=== PATIENT | female | born 1980 | race Caucasian/White ===

== ENCOUNTER 2025-04-21 09:26 | Outpatient (AMB) | payer OTHER, SELFPAY ==
--- NOTE | 2025-04-21 09:34 | MHC.PC.OV ---
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 Allergies No Known Allergies Allergy (Verified 04/21/25 09:40) Tobacco use date assessed: 04/21/25 Dental Screening Dental Screen Date: 04/21/25 Did you have a dental visit in the last 12 months?: Yes Did you have a dental problem in the last 6 months where you did not have access to dental care?: No Was dental information given to patient?: Patient has dentist HPI HPI Comments History of Present Illness Details This is a 45-year-old female with no significant past medical history presenting to establish care. She transferred from [facility]. She has annual dermatology exams. Colonoscopy age 38 years due to stomach issues. She thinks this was actually due to taking antibiotics around that time. She is doing fine. She would like to have Cologuard done. She has no family history of colon cancer history of polyps. Gynecology Dr. Villalobos. Mammogram up to date. Father had renal cancer removed in 2014. Patient denies hematuria. She is a nonsmoker. Urinalysis ordered. Eye and dental exams are up to date. She reports having a tetanus vaccine in 2020. She declines flu vaccine. 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 She is going to start exercising again and work on her diet. ROS: Constitutional: No unexplained weight loss, fever, chills, fatigue or night sweats. Eyes: No vision changes, blurry vision, double vision, eye pain, eye redness, eye discharge. ENT: No hearing loss, sneezing, congestion, runny nose or sore throat. Respiratory: No shortness of breath, cough or sputum production. Cardiovascular: No chest pain, chest pressure or chest discomfort. No palpitations or pedal edema. Gastrointestinal: No anorexia, nausea, vomiting or diarrhea. No abdominal pain or blood in stool. Genitourinary: No dysuria, hematuria, urinary frequency. Neurologic: No headache, dizziness, syncope, unilateral weakness, ataxia, numbness or tingling in the extremities. Musculoskeletal: No muscle pain, back pain, joint pain or swelling. Hematologic/Lymphatics: No bleeding or bruising. No painful lymph nodes. Skin: No rash Endocrine: No cold or heat intolerance. No polyuria or polydipsia. Psychiatric: No depression or anxiety. No SI/HI. Physical exam: Constitutional: Alert, in no distress. Head: Normocephalic. Eyes: Pupils are equal, round and reactive to light. Extraocular muscles intact. Ear, Nose and Throat: Canals clear. TMs normal. Normal nasal mucosa. No nasal discharge. No oral lesions. Neck: Supple, Full range of motion. No lymphadenopathy. No palpable thyroid masses. Respiratory: Clear to auscultation. Cardiovascular: S1 S2 regular. No murmurs. No carotid bruits. Gastrointestinal: Abdomen soft, non-tender, non-distended. Normal bowel sounds. No palpable masses. Neurologic: No focal neurological deficits. Symmetric patellar reflexes. Moves all extremities spontaneously Skin: No rashes Musculoskeletal: No gross deformities. Normal range of motion. Extremities: Warm and well perfused. No clubbing, cyanosis or edema. Intact peripheral pulses bilaterally. Psychiatric: Normal mood and affect [facility] Medical History (Updated 04/21/25 @ 10:00 by ABIGAIL Grove) Routine physical examination Screening for cardiovascular condition H/O mammogram delivery delivered Surgical History (Updated 04/21/25 @ 09:51 by Jolie Jamison CMA) H/O colonoscopy History of salpingectomy History of dilation and curettage Family History (Updated 04/21/25 @ 09:43 by Jolie Jamison CMA) Father FH: kidney cancer Social History (Updated 04/21/25 @ 09:44 by Jolie Jamison CMA) Housing: House Alcohol intake: never Patient Tobacco Use Status: Former Tobacco user Cigarette Packs Per Day: 1 Cigarettes Per Day: 7 Years Smoked: 5 e-Cigarette/Vaping Use: Never Used Second Hand Smoke Exposure: No service: No Current occupational status: unemployed Current occupational exposures/hazards: No Cognitive needs: No Hearing needs: No Vision needs: No Questionnaire PHQ-9 Over the last 2 weeks, how often have you been bothered by any of the following problems? 1. Little interest or pleasure in doing things: not at all 2. Feeling down, depressed, or hopeless: not at all 3. Trouble falling or staying asleep, or sleeping too much: not at all 4. Feeling tired or having little energy: not at all 5. Poor appetite or overeating: not at all 6. Feeling bad about yourself - or that you are a failure or have let yourself or your family down: not at all 7. Trouble concentrating on things, such as reading the newspaper or watching television: not at all 8. Moving or speaking so slowly that other people could have noticed. Or the opposite - being so fidgety or restless that you have been moving around a lot more than usual: not at all 9. Thoughts that you would be better off or of hurting yourself in some way: not at all Total score: 0 Depression Screening Interpretation: Negative Depression Screening Done: Yes 76753 - PHQ-9 Billing: Yes Source: Developed by Drs. Patel Moseley, Susana Javier, Jose Abernathy and colleagues, with an educational raghu from [employer]. Thrive Questionnaire Date Thrive assessed: 04/21/25 I am a: Patient What is your living situation today?: I have a steady place to live Within the past 12 months, did the food you bought not last and you didn't have the money to get more?: Never true Within the past 12 months, did you worry whether your food would run out before you got money to buy more?: Never true Do you have trouble paying for medicines?: No Do you have trouble getting transportation to medical appointments?: No Do you have trouble paying your heating and electricity bill?: No Do you have trouble taking care of your child, family member or friend?: No Do you have trouble with day-to-day activities such as bathing, preparing meals, shopping, managing finances, etc.?: No Are you currently unemployed and looking for a job?: No Are you interested in more education?: No Please select the resources that you would like help with: None Currently or been in a relationship where the following occur: No concerns reported THRIVE Score: 0 AUDIT C Alcohol Use Questionnaire (AUDIT-C) 1. How often do you have a drink containing alcohol?: Never 3. How often do you have six or more drinks on one occasion?: Never Total Score: 0 POLI-7 AMB Questionnaire POLI-7 Date POLI - 7 assessed: 04/21/25 Feeling nervous, anxious, or on edge: 0 = Not at all Not being able to stop or control worryin = Not at all Worrying too much about different things: 0 = Not at all Trouble relaxin = Not at all Being so restless that it is hard to sit still: 0 = Not at all Becoming easily annoyed or irritable: 0 = Not at all Feeling afraid as if something awful might happen: 0 = Not at all Total POLI-7 score (0-4 normal; 5-9 mild; 10-14 moderate; 15-21 severe): 0 Source: Developed by Drs. Patel Moseley, Susana Javier, Jose Abernathy and colleagues, with an educational raghu from [employer]. POLI-7 Assessment Billing POLI-7 Assessment Tool: POLI-7 Assessment 45505 Physical exam (Primary Care) Vital Signs: Last Vital Signs Temp 98.2 F 04/21/25 09:44 Pulse 93 04/21/25 09:44 Resp 16 04/21/25 09:44 BP 110/78 04/21/25 09:44 Pulse Ox 98 04/21/25 09:44 Oxygen Delivery Method Room Air 04/21/25 09:44 BMI result Body Mass Index 29.1 Tobacco/Smoking Status: Tobacco use Status Tobacco use date assessed 04/21/25 04/21/25 09:52 Patient Tobacco Use Status Former Tobacco user 04/21/25 09:52 e-Cigarette/Vaping Use Never Used 04/21/25 09:52 PHQ-9: PHQ-9 Score PHQ-9: Total score 0 04/21/25 09:36 Depression Screening Interpretation: Negative Thrive Assessment: Date of Thrive Assessment Date Thrive assessed 04/21/25 04/21/25 09:36 Currently or been in a relationship where the following occur: No concerns reported Coding Level of Care Code New Pt Prev Care 40-64y(00833) Diagnoses Routine physical examination Z00.00 Screening for cardiovascular condition Z13.6 Additional Codes POLI-7 Assessment Billing - POLI-7 Assessment Tool: POLI-7 Assessment 54245 ([id number]) PHQ-9 - 44740 - PHQ-9 Billing: Yes ([id number]) Assessment & Plan Assessment & Plan (1) Routine physical examination: Code(s): Z00.00 - Encounter for general adult medical examination without abnormal findings Category: Medical (2) Screening for cardiovascular condition: Code(s): Z13.6 - Encounter for screening for cardiovascular disorders Category: Medical Plan Patient is seen today for a routine physical. As part of this visit we reviewed the following issues, which are considered and essential part of preventative health in this age group: - Breast Cancer screening - Annual Wildlife Enforcement Major exam - Screening for colon cancer - Blood pressure screening - Cholesterol screening - Counseling of injury prevention including fire prevention, smoke alarms and seat belt usage - Screening for depression - Education about skin cancer - Recommendations about immunizations - Recommendation of an eye exam - Screening for substance abuse Orders: Orders Comprehensive Met. Panel Today Z00.00 - Encounter for general adult medical examination without abnormal findings, Z13.6 - Encounter for screening for cardiovascular disorders Complete Blood Count no Diff Today Z00.00 - Encounter for general adult medical examination without abnormal findings, Z13.6 - Encounter for screening for cardiovascular disorders UA w Microscopic Today R39.9 - Unspecified symptoms and signs involving the genitourinary system Lipid Panel Today Z00.00 - Encounter for general adult medical examination without abnormal findings, Z13.6 - Encounter for screening for cardiovascular disorders Referrals Cologuard Test Z12.11 - Encounter for screening for malignant neoplasm of colon
[2025-04-21 09:44] VITALS: BP 110/78; PULSE 93; RESP 16; TEMP 36.8; O2SAT 98; BMI 29.1
--- OUTSIDE RECORDS SUMMARY | 2025-04-21 12:59 | XMS_ITS | Clinical Summary ---
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 Role Phone Pcp, No Primary Care Provider Unavailabl e Allergies No known active allergies Medications No known medications Active Problems No known active problems Family History Medical History Relation Name Comments Melanoma Neg Hx Social History Tobacco Use Types Packs/Day Years Used Date Smoking Tobacco: Never Smokeless Tobacco: Never Comments Unknown Sex and Gender Information Value Date Recorded Sex Assigned at Not on file Legal Sex Female 11:52 AM EST Gender Identity Not on file Sexual Orientation Not on file Plan of Treatment Health Maintenance Due Date Last Done Comments Hepatitis C Virus Screening 1978 HIV Screening 1991 DTaP/Tdap/Td Vaccines (1 - Tdap) 1997 Hepatitis B Vaccines (1 of 3 - 19+ 3-dose series) 1997 Mammogram 2018 Colonoscopy 2023 Influenza Vaccine 12/31/2024 COVID-19 Vaccine ( - 2023-2 5 season) 2025 Pap Smear (Ages 21-65) 07/29/2027 07/29/2024 Pneumococcal Vaccine: Pediat judy (0-5 Years) and At-Risk Patients (6 to 49 Years) Aged Out No longer eligible b ased on patient's age to complete this topic Procedures Procedure Name Priority Date/Time Associated Diagnosis Comments THINPREP PAP(WORKERS COMPENSATION ADMINISTRATOR) HPV SCR RFX HPV 16,18/45 Routine 07/29/2024 3:01 PM EST from Last 3 Months or Most Recently Relevant to Health Maintenance Results * ThinPrep Pap(Track Fitter) HPV Scr Rfx HPV 16,18/45 (07/29/2024 3:01 PM EST) Report Report [facility] Comment: Final Gynecological Cytology Report ThinPrep Pap Test, HPV Screen, Reflex HPV Genotype SPECIMEN ADEQUACY: SATISFACTORY FOR EVALUATION; ENDOCERVICAL/TRANSFORMATION ZONE COMPONENT PRESENT. INTERPRETATION: NEGATIVE FOR INTRAEPITHELIAL LESION OR MALIGNANCY. Electronically Signed: Billie Garcia CT (ASCP) CLINICAL INFORMATION: LMP: NG Clinical History: NG Biopsy Date: NG Specimen Source: Cervix, Endocervix Previous Pap Date: NG HPV RESULTS: HPV mRNA E6/E7 [id number] Approved: 07/30/24 Negative REF RANGE: Negative CPT Codes: 79939 ICD Codes: Z01.419 07/29/2024 3:01 PM EST 07/30/2024 11:25 AM EST us Sarah Schaeffer MD LAB AMB PATH/CYTO ORDERABLES Final Result [facility] [address], [place] from Last 3 Months or Most Recently Relevant to Health Maintenance Insurance [facility] OUT STATE - PPO Care Teams Solid Propellant Processor Relationship Specialty Start Date End Date Pcp, No PCP - General General Medicine 05/15/17
--- OUTSIDE RECORDS SUMMARY | 2025-04-21 12:59 | XMS_ITS | Data Portability ---
Author Organization [place] - [facility] Address [address] [place] [address] Assessment No assessment recorded. Plan of Treatment Reminders Order Date Submit Date Provider Last Modified By Organization Details Last Modified Time Details Appointments None recorded. Lab urinalysi s, dipstick 2018 019 [facility], [address] , [place], [address], 9 09:45:02 culture, urine 2018 019 [facility], [address] [place], [address], 9 11:04:30 test, urine 2018 019 [facility], [address] , [place], [address], 9 10:37:19 brandon prep, tissue 2018 019 [facility], [address] [place], [address], 9 12:47:53 wet mount 2018 019 [facility], [address] [place], [address], 9 08:43:15 culture, genital, bacterial 2018 019 [facility], [address] , [place], [address], 9 08:43:12 CT + NG DNA, PCR, unspecifi ed specimen 2018 019 [facility], [address] [place], [address], 9 12:54:11 HIV (1+2) Ab screen, serum - consent for testing has been obtained [email or web address] [place] [address] Lab, [address] [place], [address], 9 10:42:18 HBsAg (hepatiti s B surface Ag), serum 2018 019 [facility], [address] [place] [address], [address], 9 19:35:46 hepatitis C virus Ab, serum 2018 019 [facility], [address] [place], [address], 9 12:47:54 RPR (rapid plasma reagin), serum 2018 019 [facility], [address] [place], [address], 9 15:19:13 herpes simplex, culture, unspecifi ed specimen 2018 019 [facility], [address] [place], [address], 9 12:47:54 Referral None recorded. Procedures None recorded. Surgeries None recorded. Imaging None recorded. Medication Orders Medrol (Herrera) 4 mg tablets in a dose pack 2023 024 [facility]/Pharmacy #[id number], [address] [place], [address], 4 10:06:54 neomycin- polymyxin -hydrocor t 3.5 mg-10,000 unit/mL-1 % ear drops,magdy p 2023 024 [facility]/Pharmacy #[id number], [address] [place], [address], 4 10:06:54 Macrobid 100 mg capsule 2018 019 [facility]/Pharmacy #[id number], [address] [place], [address], 4 09:38:48 Metrogel Vaginal 0.75 % (37.5 mg/5 gram) 2018 019 [id number] [address] [place], [address], 4 09:38:53 Patient TargetsNo targets recorded. Patient Instructions Encounter Date Encounter Id Patient Instructions Last Modified By Organization Details Last Modified Time 11/24/2018 [id number] bacterial vaginosis: care instructions cambler Not available 11/24/2018 10:27:45 12/14/2023 [id number] tinnitus: care instructions avaine Not available 12/14/2023 10:06:52 Do not smoke or use other tobacco products. Nicotine reduces blood flow to the ear and makes tinnitus worse. If you need help quitting, talk to your doctor about stop-smoking programs and medicines. These can increase your chances of quitting for good. Talk to your doctor about whether to stop taking aspirin and similar products such as ibuprofen or naproxen. Get exercise often. It can improve blood flow to the ear. Ways to cope with noise Some tinnitus may last a long time. To cope with noise, try to: Avoid noises that you think caused your tinnitus. If you can't avoid loud noises, wear earplugs or earmuffs. Ignore the sound by paying attention to other things. Relax using biofeedback, meditation, or yoga. Feeling stressed and being tired can make tinnitus worse. Play music or white noise to help you sleep. Background noise may cover up the noise that you hear in your ears. You can buy a machine that makes soothing sounds, such as ocean waves. When should you call for help? Call anytime you think you may need emergency care. For example, call if: You have symptoms of a stroke. These may include: Sudden numbness, tingling, weakness, or loss of movement in your face, arm, or leg, especially on only one side of your body. Sudden vision changes. Sudden trouble speaking. Sudden confusion or trouble understanding simple statements. Sudden problems with walking or balance. A sudden, severe headache that is different from past headaches. Call your doctor now or seek immediate medical care if: You develop other symptoms. These may include hearing loss (or worse hearing loss), balance problems, dizziness, nausea, or vomiting. Watch closely for changes in your health, and be sure to contact your doctor if: Your tinnitus moves from both ears to one ear. Your hearing loss gets worse within 1 day after an ear injury. Your tinnitus or hearing loss does not get better within 1 week after an ear injury. Your tinnitus bothers you enough that you want to take medicines to help you cope with it. avaine Not available 12/14/2023 12:56:36 You have had an Urgent Care Visit which is designed to address acute issues. It does not represent an exhaustive evaluation of your symptom complex, but is an attempt to treat and manage the most likely cause of your most pressing physical issues. If you are not improved in the time frame that we have discussed, please seek the advice of your PCP who is in a position to order further diagnostic testing and possible specialist consultation. If you are rapidly deteriorating despite the treatment recommendations please do not wait to see your PCP and do proceed to the closest ER where a comprehensive evaluation including consideration to lab and other diagnostic testing as well as consultation is more expeditiously accessible. If you were prescribed medications they have been directly submitted to your pharmacy on file. Please make sure you finish all your medications and if you develop major side effects related to them please do stop taking them and check with your PCP to see if you need to get an alternative medication. If labs or xray were ordered, we will call you with the results if there is any change to your plan of care. Please note this report has been produced using speech recognition software and may contain errors related to that systems translation. Errors in grammar, punctuation, and spelling may be present. It may also include errors in words and phrases . If there are any questions or concerns please feel free to contact me for clarification. avaine Not available 12/14/2023 12:55:52 Reason for Referral None Reported. Results Created Date Observation Date Name Description Value Unit Range Abnormal Flag Note LastModifiedBy Organization Detail LastModifiedTime 11/25/19 19 11/24/2018 pregn ivan test, urine Result negati ve Not Available Padmini [facility] [address] [place], [address], 11/24/2018 09:42:44 11/25/1911/24/2018 brandon wet prep brandon prep athol BRANDON PREP RESULT : NO MYCELI AL ELEMEN TS SEEN normal Not Available [facility] [address] [place], [address], 11/24/2018 15:00:34 11/25/19 19 11/24/2018 HIV (1+2) Ab scree n, serum HIV NON-RE ACTIVE nonrea ctive normal A non-r eacti ve resul t indic ates that HIV-1 (HTLV -III) and HIV-2 antib odies have not been found in this patie nt's speci men. A non-r eacti ve resul t, howev er, does not precl ude previ ous expos ure or infec tion with HIV-1 and HIV-2 . Not Available [facility] [address] [place], [address], 11/24/2018 19:35:44 11/25/1911/24/2018 HBsAg (hepa titis B surfa ce Ag), serum hep B surf Ag NON-RE ACTIVE nonrea ctive normal Nonre activ e Hepat itis B Surfa ce Antig en not detec demarco: does not exclu de the possi bilit y of expos ure to or early acute infec tion with HBV. Not Available [facility] [address] [place], [address], 11/24/2018 19:35:46 11/25/19 19 11/24/2018 hepat itis C virus Ab, serum hep C Ab interp Negati ve nonrea ctive normal Not Available [facility] [address] [place], [address], 11/24/2018 19:35:49 11/25/19 19 11/26/2018 cultu re, urine urine culture normal LACTO BACIL MATI SPECI ES STAPH YLOCO CCUS SPECI ES X2 RESUL TS CONSI STENT WITH CONTA MINAT ION COLON Y COUNT : COLON Y COUNT : GREAT ER THAN 100,0 00 COL/M L ORGAN ISM 1: LACTO BACIL MATI SPECI ES ORGAN ISM 2: STAPH YLOCO CCUS SPECI ES Not Available [facility] [address] [place], [address], 11/26/2018 11:04:30 11/25/19 19 11/26/2018 CT + NG DNA, PCR, urine chlamy (ALVINA) ur NEGATI VE negati ve normal Not Available [facility] [address] [place] [address], [address], 11/26/2018 12:54:11 11/25/19 19 11/26/2018 CT + NG DNA, PCR, urine N.gono(naat) ur NEGATI VE negati ve normal Not Available [facility] [address] [place] [address], [address], 11/26/2018 12:54:11 11/25/19 19 11/26/2018 hsv cultu re/ty pe hsv cult/type Negat shen No Herpe s simpl ex virus isola demarco. Perfo rmed at: RN - [facility] [place] [address] [place] [address] Matilde e, [place] [address] Lab Direc tor: Pravin Neri MD, Phone : [phone] Not Available [facility] [address] [place] [address], [address], 11/26/2018 14:14:47 11/25/19 19 11/27/2018 cultu re, genit al, bacte rial genital culture susceptib le FEW ESCHE GERBER A COLI FEW LACTO BACIL MATI SPECI ES FEW STREP TOCOC CUS ALPHA HEMOL YTIC NEGAT SHEN FOR NEISS ERIA GONOR RHOEA E ORGAN ISM 1: ESCHE GERBER A COLI ORGAN ISM 2: LACTO BACIL MATI SPECI ES ORGAN ISM 3: STREP TOCOC CUS ALPHA HEMOL YTIC ESCHE GERBER A COLI: REACT ION AMIKA BARNEY <=2 S AMPIC ILLIN <=2 S AMPIC ILLIN /SULB ACTAM <=2 S CEFAZ HERNESTO <=4 S CEFEP MARY JO <=1 S ERTAP ENEM <=0.5 S CEFTA ZIDIM E <=1 S CEFTR IAXON E <=1 S CIPRO FLOXA BARNEY <=0.2 5 S GENTA MICIN <=1 S IMIPE NEM <=0.2 5 S LEVOF LOXAC IN <=0.1 2 S PIPER ACILL IN/TA ZOBAC ESPOSITO <=4 S TRIME THOPR IM/BO LFAME THOXA ZOLE <=20 S TOBRA MYCIN <=1 S Not Available [facility] [address] [place] [address], [address], 11/27/2018 08:43:12 11/25/1911/24/2018 wet mount wet prep normal WET PREP RESUL T: NO TRICH OMONA S VAGIN THAO SEEN CLUE CELL RESUL T: NONE SEEN Not Available [facility] [address] [place], [address], 11/27/2018 08:43:15 11/25/19 19 11/27/2018 RPR (rapi d plasm a reagi n), serum RPR NEG negati ve normal Not Available [facility] [address] [place], [address], 11/27/2018 15:19:13 11/25/19 19 11/24/2018 urina lysis , dipst ick Leukocytes Modera te Not Available [facility] [address] [place], [address], 11/24/2018 09:16:11 11/25/19 19 11/24/2018 urina lysis , dipst ick Nitrite negati ve Not Available [facility] [address] [place], [address], 11/24/2018 09:16:11 11/25/19 19 11/24/2018 urina lysis , dipst ick Urobilinogen Normal Not Available [facility] [address] [place], [address], 11/24/2018 09:16:11 11/25/19 19 11/24/2018 urina lysis , dipst ick Protein Trace Not Available [facility] [address] [place], [address], 11/24/2018 09:16:11 11/25/1911/24/2018 urina lysis , dipst ick PH 5.0 Not Available [facility] [address] [place], [address], 11/24/2018 09:16:11 11/25/1911/24/2018 urina lysis , dipst ick Blood Hemoly zed Not Available [facility] [address] [place], [address], 11/24/2018 09:16:11 11/25/1911/24/2018 urina lysis , dipst ick Specific Miranda 1.025 Not Available [facility] [address] [place], [address], 11/24/2018 09:16:11 11/25/1911/24/2018 urina lysis , dipst ick Ketone Negati ve Not Available [facility] [address] [place], [address], 11/24/2018 09:16:11 11/25/1911/24/2018 urina lysis , dipst ick Bilirubin Negati ve Not Available [facility] [address] [place], [address], 11/24/2018 09:16:11 11/25/19 19 11/24/2018 urina lysis , dipst ick Glucose Negati ve Not Available [facility] [address] [place], [address], 11/24/2018 09:16:11 Result Notes None recorded. Problems Name Problem SNOMED Code Status Onset Date Resolution Date Notes Provider Name and Address Organization Details Recorded Time Anxiety 07258931 Active 2018 Lorazepam PRN when flying on airplanes. AFSHIN SQUIRES NP [address] [facility], [address], [facility] 9 10:34:26 Acne 39776827 Active 2018 AFSHIN SQUIRES NP [address] [facility] [place], [address], [facility] 9 10:34:33 Problem Notes None recorded. Medical Equipment None Reported. Allergies Allergen ID Allergen Name Allergen Category Reaction Reaction Severity Criticality Documentation Date Start Date Code Code System Note Provider Name and Address Organization Details Recorded Time 526383 erythromy barney medicatio n Not available Not available Not available 11/24/2018 4053 [facility] 9 09:14:41 Medications Name Sig Start Date Stop Date Status Note LastModified by Organization Details LastModified Time amoxicillin 500 mg capsule 11/24 completed Not Available Not Available Not Available azithromyci n 250 mg tablet TAKE 2 TABLETS BY MOUTH ON DAY 1, AND THEN TAKE 1 TABLET BY MOUTH ONCE A DAY ON DAY 2 THROUGH DAY 5 active Not Available Not Available No t Available tretinoin 0.025 % topical cream active Not Available Not Available Not Available prednisone 20 mg tablet 11/24 completed Not Available Not Available Not Available penicillin V potassium 500 mg tablet TAKE 1 TABLET BY MOUTH TWICE A DAY FOR 10 DAYS active not takng - AH Not Available Not Available Not Available Macrobid 100 mg capsule Take 1 capsule every 12 hours by oral route for 7 days. 2018 active not takng - AH Not Available Not Available Not Available Metrogel Vaginal 0.75 % (37.5 mg/5 gram) Insert 1 applicato rful every 12 hours by vaginal route for 5 days. 2018 active not takng - AH Not Available Not Available Not Available lorazepam 0.5 mg tablet active Not Available Not Available Not Available betamethaso ne dipropionat e 0.05 % topical cream 11/24 completed Not Available Not Available Not Available mupirocin 2 % topical ointment APPLY A THIN LAYER TOPICALLY TO AFFECTED AREAS ON BACK TWICE DAILY NEEDED active Not Available Not Available No t Available methylpredn isolone 4 mg tablets in a dose pack USE DIRECTED active Not Available Not Available No t Available neomycin-po lymyxin-hyd rocort 3.5 mg-10,000 unit/mL-1 % ear drops,susp INSTILL 4 DROPS INTO AFFECTED EAR(S) 3 TIMES A DAY active Not Available Not Available No t Available ProAir HFA 90 mcg/actuati on aerosol inhaler 11/24 completed Not Available Not Available Not Available Compact Space Chamber 11/24 completed Not Available Not Available Not Available Vitals Date Recorded Body weight Heart rate Oxygen saturation Body temperature Systolic And Diastolic Provider Name and Address Organization Details Last Updated DateTime 9 71653.8 6 g 99 /min 99 % 98.1 [degF] 130/72 mm[Hg] Odalis trinidad [place] [facility] 9 09:13:30 Date Recorded Body temperature Oxygen saturation Heart rate Systolic And Diastolic Provider Name and Address Organization Details Last Updated DateTime 12/14/2023 98.7 [degF] 98 % 87 /min 140/100 mm[Hg] Massiel Fall [facility] 4 09:50:40 Social History Question Answer Notes LastModified by Organizat ion Details LastModified Time Tobacco Smoking Status Former Smoker AFSHIN SQUIRES NP [address] [facility], [place], [address], [facility] 11/24/2018 10:34:04 What Was The Date Of Your Most Recent Tobacco Screening? 11/24/2018 Information n ot available 12/24/2018 Sex: Unknown Functional Status None recorded. Mental Status None recorded. Family History Nothing Reported. Medical History No medical history recorded. Gynecological HistoryNo gynecological history recorded. Obstetrics History GPAL:G 0 P 0 0 0 0 Past Encounters Encounter ID Performer Location Encounter Start Date Encounter Closed Date Diagnosis/Indication Diagnosis SNOMED-CT Code Diagnosis ICD10 Code Diagnosis IMO Codes Diagnosis Note [id number] [facility] [address] [address] 11/24/2018 08:59:52 11/24/2018 10:53:58 Urinary tract infectious disease 38265161 N39.0 Will treat with antibiotic s as below. Discussed warning signs of pyelonephr itis including flank pain, fever and nausea/vom iting. Recommend voiding after sexual intercours e. Push fluids. Consider cranberry juice/supp lement. Pt to f/u with PCP in 2-3 days if symptoms worsen, sooner if not improving. Vaginal discomfort 68089 1003 N89.9 Will examine symptoms further with labs as below, see vaginal lesion. Vaginal lesion 637859487 N94.89 Will check for herpes. Suspect d/t irritation from friction as recently had vaginal sexual intercours e. Will r/o herpes with test as below. Advised to abstain from sexual activity or at least use barrier protection At [facility] risk of sexually transmitted infection 535675658 Z20.2 Has vaginal lesions, therefore will check for STI's as below. Vaginitis and vulvovaginitis 966546386 N76.0 ? BV given has elevated vag pH and white discharge. Will tx as below. Discussed vaginitis prevention and OTC options for symptomati c relief. Pt to follow-up in 3-5 days if symptoms are not improving, sooner if worsening. [id number] [facility] [address] [address] 12/14/2023 09:24:44 12/14/2023 10:16:32 Tinnitus of right ear 9230305125 108 H93.11 43-year-ol d female presents to urgent care complainin g of tinnitus of the right ear going on for 24 to 48 hours. Patient denies any headache visual issues , chest pain or SOB. On examinatio n neuroexam is normal. No dizziness or headache. Discussed with patient we will treat with medication below. Any worsening symptoms to acute onset of headache dizziness patient was advised to go to the emergency room. Vital signs reviewed. Health Concerns Section Related Observation LastModified by Organization Detai ls LastModified Time None Recorded Concern Status LastModified by Organization Details LastModified Time None Recorded Advance Directives Directive None Recorded Payers Insurance Date Sequence Insurance Name Policy Number Policy Winters Covered Member ID Winters Member ID Guarantor Name 12/14/2023 1 [facility] - PREFERRED (MEDICARE SUPPLEMENT) Tara Hanson [id number] Kristopher Hanson 12/14/2023 1 [place] [id number] Kristopher Hanson [id number] Kristopher Hanson 12/14/2023 1 [employer] (POS II) Tara Hanson [id number] Kristopher Hanson Notes Date Note Type Note Provider Name and Address Organization Details Recorded Time 11/24/2018 text/html Patient presents today for possible UTI. History as above. yesterday developed dysuria, there was a red patches , has covered the area with vaseline and her burning pain with urination stopped. Of note was using a new shampoo and did scrub the genital area with suds from the shampoo before her symptoms developed. Of note, also states just had vaginal intercourse with her the day before her symptoms developed. States is in sexually monogamous relationship with her of 20 years. Rebeca Chávez MD [address] [facility] [place], [address], [facility] 11/24/2018 22:49:46 12/14/2023 text/html 43YOF presents with tinnitus. Pt states that this started yesterday afternoon, lasted a couple hrs, pt reports a noise she can still hear in her ear of a chirping sound. Pt states she has an otoscope at home and it looks as though there is a blood blister. Pt reports R ear has the tinnitus. Rebeca Chávez MD [address] [place], [address], [facility] 12/14/2023 22:06:14 OBGyn Episode No OBEpisode recorded.
== END 2025-04-21 10:14 | disposition home or self-care (01) ==
PROVIDERS: PCP Physician Assistant Medical; Visit Provider Physician Assistant Medical
DX: Z00.00 Encounter for general adult medical examination without abnormal findings (principal); Z13.6 Encounter for screening for cardiovascular disorders

== ENCOUNTER 2025-04-21 09:26 | Outpatient (REF) | payer OTHER, SELFPAY ==
[2025-04-21 14:14] LABS: Appearance Urine Clear; Glucose Urine UA Negative (Negative); PH 6.5 (5.0-9.0); Specific Gravity - Urine 1.025 (1.005-1.025); UMIC TRIGGER UA YES
[2025-04-21 14:14] LABS: Hematocrit 39.1 % (37.0-47.0); Hemoglobin 12.8 g/dl (12.0-16.0); Mean Corpuscular HGB Conc 32.7 g/dl (31.0-35.0); Mean Corpuscular Hemoglobin 27.6 pg (27.0-33.0); Mean Corpuscular Volume 84.3 fL (80.0-98.0); NRBC Abs Auto 0.000 X10*3/uL (0.0-0.012); NRBC Pct Auto 0.0 /100WBC (0.0-0.2); Platelet Count 244 X10*3/uL (160-400); Red Blood Count 4.64 X10*6/uL (4.20-5.50); White Blood Count 4.8 X10*3/uL (4.8-10.8)
[2025-04-21 14:41] LABS: Anion Gap 11 (12-20); Blood Urea Nitrogen 15 mg/dL (9-16); Calcium 9.7 mg/dL (8.4-10.2); Carbon Dioxide 30 mmol/L (22-29); Chloride 106 mmol/L (96-108); Estimated Glomerular Filt Rate > 60; Potassium 4.1 mmol/L (3.3-5.1); Sodium 143 mmol/L (135-145)
[2025-04-21 14:42] LABS: Alanine Aminotransferase 45 U/L (0-31); Albumin Level 4.6 g/dL (3.5-5.0); Alkaline Phosphatase 73 U/L (39-117); Aspartate Amino Transferase 42 U/L (5-31); Cholesterol 236 mg/dL (<200); HDL Cholesterol 62 mg/dL (>40); Total Protein 7.5 g/dL (6.5-8.0); Triglycerides 79 mg/dL (<150)
== END 2025-04-21 09:27 | disposition home or self-care (01) ==
LOC: HO.WFDLDS 09:26
PROVIDERS: PCP Physician Assistant Medical; Visit Provider Physician Assistant Medical
DX: Z00.00 Encounter for general adult medical examination without abnormal findings (principal); R39.9 Unspecified symptoms and signs involving the genitourinary system; Z13.6 Encounter for screening for cardiovascular disorders
CPT/HCPCS: 36415; 80053; 80061; 81001; 85027; 96127